=== PATIENT | male | born 1955 | race Two or more races ===

== ENCOUNTER 2019-09-17 12:00 | Inpatient (IN) | payer BC ==
[~2019-09-17] VITALS: Ht 172.7 cm; Wt 78.9 kg
--- NOTE | 2019-09-17 12:00 | NUR ---
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
--- NOTE | 2019-09-17 12:21 | NUR ---
DR BULLOCK AT BEDSIDE
[2019-09-17] MEDS ORDERED: EPINEPHRINE (1:1000) 1 MG/ML AMPUL ONE (12:26)
[2019-09-17] MEDS: EPINEPHRINE (1:1000) MDV 30 MG/30ML VIAL SUBCUT ONE ×2 (12:27→12:35)
[2019-09-17] MEDS ORDERED: NITROGLYCERIN 0.4 MG/TAB BOTTLE ONE (12:32)
[2019-09-17 12:43] LABS: BASOPHILS # (AUTO) 0.1 /CMM (0.0-0.2); BASOPHILS % (AUTO) 0.5 % (0.0-2.0); EOSINOPHILS % (AUTO) 3.2 % (0.0-6.0); HEMATOCRIT 48 % (39-51); HEMOGLOBIN 15.9 g/dL (13.5-17.5); LYMPHOCYTES # (AUTO) 5.2 /CMM (0.8-4.8); LYMPHOCYTES % (AUTO) 36.3 % (20.0-44.0); MEAN CORPUSCULAR HGB CONC 33 g/dl (31.0-36.0); MEAN CORPUSCULAR VOLUME 93 fL (80-96); MONOCYTES # (AUTO) 0.9 /CMM (0.1-1.30); NEUTROPHILS # (AUTO) 7.7 /CMM (1.8-8.9); PLATELET COUNT (AUTO) 315 /CMM (150-450); RED BLOOD CELL COUNT(AUTO) 5.14 MIL/uL (4.5-6.0); WHITE BLOOD COUNT (AUTO) 14.3 K/uL (4.3-11.0)
[2019-09-17 12:51] LABS: CARBON DIOXIDE 26 mmol/L (21-32); CHLORIDE 104 mmol/L (98-107); CREATININE 1.1 mg/dL (0.6-1.3); GLUCOSE 212 mg/dL (74-106); POTASSIUM 3.1 mmol/L (3.5-5.1); SODIUM SERUM 142 mmol/L (136-145); UREA NITROGEN, BLOOD 18 mg/dL (7-18)
[2019-09-17] MEDS ORDERED: MORPHINE SULFATE INJ 4 MG/ML DISP.SYRIN ONE (12:54)
[2019-09-17] MEDS ORDERED: methylPREDNISolone SOD SUCC 125 MG/2ML VIAL ONE (12:54)
[2019-09-17] MEDS ORDERED: MORPHINE SULFATE INJ 2 MG/ML DISP.SYRIN IV ONE (13:00)
[2019-09-17] MEDS ORDERED: methylPREDNISolone SOD SUCC 125 MG/2ML VIAL IV ONE (13:00)
[2019-09-17] MEDS ORDERED: NITROGLYCERIN 0.4 MG/TAB BOTTLE SL ONE (13:00)
[2019-09-17] MEDS ORDERED: METO25TA3 PO (13:31)
[2019-09-17] MEDS ORDERED: ASPI-1169 PO (13:31)
[2019-09-17] MEDS ORDERED: CLOP75TA15 PO (13:31)
[2019-09-17] MEDS ORDERED: AMLO10TA7 PO (13:31)
[2019-09-17] MEDS ORDERED: CLON0.5T PO (13:31)
[2019-09-17] MEDS ORDERED: EVOL140S SQ (13:31)
--- NOTE | 2019-09-17 15:24 | NUR ---
CALLED NURSING SUP FOR TELE BED.
--- NOTE | 2019-09-17 15:38 | NUR ---
CALLED [facility].
--- NOTE | 2019-09-17 15:50 | NUR ---
REPORT GIVEN TO PINA OF TELE UNIT
[2019-09-17 16:00] VITALS: BP 134/83
[2019-09-17 16:30] VITALS: BP 134/83
--- NOTE | 2019-09-17 16:30 | NUR ---
HYDRODYNAMICS TEACHERSHIP CEILER NOTE RECEIVED REPORT FROM C RN FROM ER.PATIENT AXOX4.ON ROOM AIR SATURATING 96%.NO SOB NO DISTRESS NOTED.IV ON L WRIST #18.INTACT AND PATENT.SKIN IS INTACT.C/O CHEST PAIN AND NECK TIGHTNESS.ON TELE MONITOR SR WITH BBB HR 86.BED IS LOW AND IN LOCKED POSITION.CALL LIGHT IN REACH.BED ALARM, ON SRX2.FAMILY AT BEDSIDE.WILL CONTINUE TO MONITOR.
[2019-09-17] MEDS ORDERED: clonazePAM 0.5 MG TABLET PO PRN (17:00)
[2019-09-17] MEDS ORDERED: ACETAMINOPHEN 325 MG TABLET PO PRN (17:00)
[2019-09-17] MEDS ORDERED: ONDANSETRON HCL/PF 4 MG/2 ML VIAL IVP PRN (17:00)
[2019-09-17] MEDS ORDERED: NITROGLYCERIN 0.4 MG/TAB BOTTLE SL PRN (17:00)
[2019-09-17] MEDS ORDERED: HYDROCODONE/APAP 5/325MG 1 EACH TABLET PO PRN (17:00)
[2019-09-17] MEDS ORDERED: MAGNESIUM HYDROXIDE 30 ML UDC PO PRN (17:00)
[2019-09-17] MEDS ORDERED: MORPHINE SULFATE INJ 2 MG/ML DISP.SYRIN IV PRN (17:00)
[2019-09-17] MEDS ORDERED: MAG HYDROX/AL HYDROX/SIMETH 30 ML UDC PO PRN (17:00)
[2019-09-17] MEDS ORDERED: ZOLPIDEM TARTRATE 5 MG TABLET PO PRN (17:00)
[2019-09-17] MEDS: methylPREDNISolone SOD SUCC 125 MG/2ML VIAL IV SCH (17:20)
[2019-09-17] MEDS: IV NS 0.9% 1,000 ML IV PRN (17:20)
[2019-09-17] MEDS: diphenhydrAMINE HCL 25 MG CAPSULE PO SCH ×2 (17:21→23:53)
[2019-09-17] MEDS: FAMOTIDINE (20 MG) 20 MG TABLET PO SCH ×2 (17:21→21:56)
[2019-09-17] MEDS ORDERED: POTASSIUM CHLORIDE 20 MEQ TAB.PRT.SR PO ONE (17:30)
--- NOTE | 2019-09-17 18:39 | NUR ---
WAITER/WAITRESS CABIN CLASS NOTE PATIENT C/O PAIN IN THE RUQ.WHILE PALPATION PAIN INCREASING . MADE AWARE.GOT ORDER FOR SONOGRAM OF RUQ.RADIOLOGY MADE AWARE.PLACED AN ORDER FOR RUQ US.WILL CONTINUE TO MONITOR.
--- NOTE | 2019-09-17 19:30 | NUR ---
SKEIN WINDING OPERATOR OPENING NOTE, RECEIVED REPORT FROM AM RN. PATIENT A/OX4. ON ROOM AIR SATURATING WELL. NO SOB NO DISTRESS NOTED. IV ON L WRIST #18. INTACT AND PATENT. C/O HEADACHE . ON TELE MONITOR SR WITH BBB HR 86. FAMILY AT BEDSIDE. BED IS LOW AND IN LOCKED POSITION. CALL LIGHT IN REACH. BED ALARM ON. WILL CONTINUE TO MONITOR.
--- NOTE | 2019-09-17 19:35 | NUR ---
MOBILE HEALTH VEHICLE OPERATOR CLOSING NOTE .PATIENT IN BED. AXOX4.ON ROOM AIR .NO SOB NO DISTRESS NOTED.IV ON L WRIST #18 WITH IVF NS@75CC/HR.INTACT AND PATENT. 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
[2019-09-17 20:00] VITALS: BP 132/72
--- NOTE | 2019-09-17 21:28 | NUR ---
PT IS REFUSING HIS EKGS. STATED THAT HE HAS DONE SO MANY AND DOES NOT WANT ANOTHER ONE UNTIL TOMORROW. RN NOTIFIED.
[2019-09-17] MEDS: ENOXAPARIN SODIUM 100 MG/ML DISP.SYRIN SQ SCH ×2 (21:58→23:00)
--- NOTE | 2019-09-17 23:00 | NUR ---
RN NOTE, PATIENT REFUSED LOVENOX 100MG BECAUSE HE TOOK HIS PLAVIX 75MG AT HOME THIS MORNING BEFORE COMING TO ER. HAND TUBE WINDER MD WAS NOTIFIED. PER MDs ORDER PATIENT WILL TAKE HIS SCHEDULED PLAVIX IN THE MORNING.
[2019-09-18] VITALS: BP 129/75
[2019-09-18] MEDS: ENOXAPARIN SODIUM 100 MG/ML DISP.SYRIN SQ SCH (01:02)
[2019-09-18 04:00] VITALS: BP 107/55
[2019-09-18] MEDS: diphenhydrAMINE HCL 25 MG CAPSULE PO SCH ×2 (05:03→10:03)
[2019-09-18] MEDS: IV NS 0.9% 1,000 ML IV PRN (05:06)
[2019-09-18 06:33] LABS: BASOPHILS % (AUTO) 0.2 % (0.0-2.0); HEMATOCRIT 43 % (39-51); HEMOGLOBIN 14.6 g/dL (13.5-17.5); LYMPHOCYTES # (AUTO) 0.9 /CMM (0.8-4.8); LYMPHOCYTES % (AUTO) 6.5 % (20.0-44.0); MEAN CORPUSCULAR HGB CONC 34 g/dl (31.0-36.0); MEAN CORPUSCULAR VOLUME 91 fL (80-96); MONOCYTES # (AUTO) 0.2 /CMM (0.1-1.30); MONOCYTES % (AUTO) 1.2 % (2.0-12.0); NEUTROPHILS # (AUTO) 13.2 /CMM (1.8-8.9); NEUTROPHILS % (AUTO) 92.1 % (43.0-81.0); PLATELET COUNT (AUTO) 251 /CMM (150-450); RED BLOOD CELL COUNT(AUTO) 4.75 MIL/uL (4.5-6.0); WHITE BLOOD COUNT (AUTO) 14.4 K/uL (4.3-11.0)
[2019-09-18 06:59] LABS: THYROID STIMULATING HORMONE 0.461 uIU/mL (0.358-3.74)
--- NOTE | 2019-09-18 07:07 | NUR ---
LINER ROLL CHANGER CLOSING NOTE, PATIENT IN BED SLEEPING. A/OX4. ON ROOM AIR SATURATING WELL. NO SOB NO DISTRESS NOTED. IV ON L WRIST #18. INTACT AND PATENT. ON TELE MONITOR SR WITH BBB HR 86. BED IS LOW AND IN LOCKED POSITION. CALL LIGHT IN REACH. BED ALARM ON. WILL ENDORSE PATIENT TO AM RN FOR VASQUEZ.
[2019-09-18 07:09] LABS: CALCIUM, SERUM 8.3 mg/dL (8.5-10.1); CREATININE 0.9 mg/dL (0.6-1.3); PHOSPHORUS 1.8 mg/dL (2.5-4.9); POTASSIUM 4.3 mmol/L (3.5-5.1)
[2019-09-18] MEDS ORDERED: PANTOPRAZOLE 40 MG TABLET.DR PO SCH (07:30)
--- NOTE | 2019-09-18 07:59 | NUR ---
RN OPENING NOTES RECEIVED PATIENT SLEEPING IN BED COMFORTABLY, EASILY AROUSED. HE IS AOX4, VERBAL, AND AMBULATORY. HE IS ON RA, TOLERATING WELL, NO S/SX OF RESP DISTRESS OR SOB. TELE MONITOR SHOW SR WITH BBB. SKIN IS INTACT, NO EDEMA PRESENT. HE IS ON CARDIAC DIET, TOLERATING WELL. LARM 18 G IS PATENT AND INTACT, INFUSING NS AT 75 ML/HR. SAFETY MEASURES HAVE BEEN IMPLEMENTED, CALL LIGHT IS WITHIN REACH, BED IS IN LOWEST AND LOCKED POSITION, SIDE RAILS UP X2, WILL CONTINUE TO MONITOR FOR ANY CHANGE.
[2019-09-18 08:00] VITALS: BP 103/63
[2019-09-18] MEDS: FAMOTIDINE (20 MG) 20 MG TABLET PO SCH (08:37)
[2019-09-18] MEDS: methylPREDNISolone SOD SUCC 125 MG/2ML VIAL IV SCH ×2 (08:38→13:38)
[2019-09-18] MEDS ORDERED: CLOPIDOGREL BISULFATE 75 MG TABLET PO SCH (09:00)
[2019-09-18] MEDS ORDERED: ASPIRIN 81 MG TAB.CHEW PO SCH (09:00)
[2019-09-18 12:00] VITALS: BP 131/62
[2019-09-18] MEDS ORDERED: K PHOS NEUTRAL 250 MG TABLET PO ONE (13:00)
--- NOTE | 2019-09-18 14:34 | NUR ---
dr. mosqueda cleared patient cardiac adler ,dr. velasco notified also relayed pt. need prescription for epiphen.
--- NOTE | 2019-09-18 16:42 | NUR ---
RN NOTES PATIENT HAS BEEN DISCHARGED. HE WAS CLEARED FROM CARDIOLOGY. EXIT CARE WAS USED DURING THE DC, PT BELONGINGS WERE RETURNED AND LIST WAS CHECKED OFF. PT HAD GOOD UNDERSTANDING OF MEDICATION REGIMEN. INSTRUCTIONS WERE GIVEN TO PT AND . PT WALKED OFF THE UNIT AND LEFT VIA PRIVATE CAR
== END 2019-09-18 15:35 | disposition home or self-care (01) | DRG 282 ==
LOC: ER 12:03 → TELE1 15:30
DX: I21.4 Non-ST elevation (NSTEMI) myocardial infarction (principal); I10 Essential (primary) hypertension; I20.1 Angina pectoris with documented spasm; E78.5 Hyperlipidemia, unspecified; Z87.891 Personal history of nicotine dependence; Z88.2 Allergy status to sulfonamides; K21.9 Gastro-esophageal reflux disease without esophagitis; Z87.11 Personal history of peptic ulcer disease; Z95.5 Presence of coronary angioplasty implant and graft; T36.0X5A Adverse effect of penicillins, initial encounter; Y92.89 Other specified places as the place of occurrence of the external cause
CPT/HCPCS: 36415; 71045-TC; 76700-TC; 80048-TC; 80061-TC; 83735-TC; 84100-TC; 84443-TC; 84484-TC; 85025-TC; 85610-TC; 85730-TC; 87081-TC; 93307-TC; G0378; J0171; J1650; J2270; J2930; J7030; Q0163